=== PATIENT | female | born 1940 | race Caucasian/White ===

== ENCOUNTER 2016-10-01 12:45 | Emergency (ER) | payer MEDICARE, BC ==
--- NOTE | ~2016-10-01 | CR72 ---
[facility] A Service of [facility] / [facility] RADIOLOGY TEXT RESULTS PATIENT: YUE LINDSEY LOCATION: SED : 36 UNIT #: [id number] AGE: [address]: Consuelo Phelan SEX: F ORDER DR: [id number] [address] [address] [id number] MR#: [id number] Acc #: [id number] NAME: YUE LINDSEY. : 1940 SEX: F STUDY DATE/TIME: 10/01/2016 12:57 UNIT: SED ROOM: STUDY DESCRIPTION: CR Chest Single View Portable Attending Physician: Consuelo Phelan Pa-C Ordering Physician: Physician Non-Staff Primary Care Physician: Frank Feldman M.D. MEDICAL IMAGING REPORT This report is preliminary unless electronic signature is present. EXAM Frontal chest, 10/01/2016 INDICATIONS 76-year-old female with a cough, congestion, positive flu diagnosis, symptoms since . History of uterine malignancy. Hypertension. TECHNIQUE Frontal chest compared with 11/05/2015. FINDINGS Exam degraded by body habitus. Cardiac silhouette enlarged but stable. Vascularity is normal. There is no new dense consolidation, effusion or pneumothorax. Calcified granulomas are present. There is underpenetration of the left lung base due to body habitus. IMPRESSION 1. Persistent cardiomegaly and old healed granulomatous disease, no definite superimposed active disease. Size limited study. Dictated by... Yony Beatty M.D. THIS IS AN ELECTRONICALLY VERIFIED REPORT Yony Beatty M.D. at 10/02/2016 7:38 AM MACARIO/melissa TD: 10/01/2016 20:23 JOB #: [id number] MEDICAL IMAGING REPORT
[~2016-10-01 12:45] MED LIST: AMLODIPINE BESY10 MG PO; ASPIRIN81 M2 PO; BENAZEPRIL-HCTZ1 T16 PO; BENZONATATE; CEFDINIR300 M2; FOSAMAX70 MG PO; LIDODERM30 EA; LIDODERM30 EA ID; LIPITOR PO; LORTAB 5/500 TA1 TA1 PO; PHENERGAN25 MG; SYNTHROID PO; VICODIN ES 7.51 EAC1
[2016-10-01 12:46] LABS: INFLUENZA A POS (NEG); INFLUENZA B NEG (NEG)
== END 2016-10-01 14:00 | disposition home or self-care (01) ==
LOC: SED 12:45
PROVIDERS: Physician Assistant
DX: J10.1 Influenza due to other identified influenza virus with other respiratory manifestations (principal); I10 Essential (primary) hypertension; Z90.710 Acquired absence of both cervix and uterus; Z90.49 Acquired absence of other specified parts of digestive tract; Z88.0 Allergy status to penicillin
CPT/HCPCS: 71010; 87804; 99283